=== PATIENT | female | born 1990 | race Caucasian/White ===

== ENCOUNTER 2019-10-24 10:04 | Outpatient (CLI) | payer OTHER, SELFPAY ==
[2019-10-24 10:39] LABS: Basophils % 0.7 %; Eosinophils # 0.1 10^3/uL (0.0-0.8); Eosinophils % 1.1 %; Hematocrit 45.2 % (37.0-47.0); Hemoglobin 15.1 g/dL (11.5-15.3); Lymphocytes # 1.8 10^3/uL (0.8-4.8); Lymphocytes % 39.1 %; Mean Corpuscular HGB Conc 33.4 g/dL (30.0-36.0); Mean Corpuscular Hemoglobin 31.9 pg (28.0-34.0); Mean Corpuscular Volume 95.4 fL (81-99); Mean Platelet Volume 9.9 fL (7.4-10.4); Monocytes # 0.3 10^3/uL (0.2-0.9); Monocytes % 7.2 %; Neutrophils # 2.4 10^3/uL (1.8-7.7); Neutrophils % 51.7 %; Nucleated Red Blood Cells % 0 %; Platelet Count 249 10^3/cmm (130-400); Red Blood Count 4.74 10^6/uL (4.1-5.3); Red Cell Distribution Width 11.9 % (12.1-15.1); White Blood Count 4.6 10^3/uL (4.0-10.0)
[2019-10-24 11:17] LABS: Alanine Aminotransferase 15 U/L (0-33); Albumin Level 4.8 g/dL (3.5-5.2); Alkaline Phosphatase 58 IU/L (35-105); Anion Gap 17.2 (5-19); Aspartate Amino Transferase 21 U/L (0-32); Blood Urea Nitrogen 11 mg/dL (6-20); Calcium 9.4 mg/dL (8.5-10.5); Carbon Dioxide 24 mmol/L (22-29); Chloride 101 mmol/L (98-107); Chol HDL Ratio 3.52 mg/dL (0.0-4.40); Cholesterol 183 mg/dL (0-200); Globulin 3.2 g/dL (1.3-4.6); Glomerular Filtration Rate 75.7 mL/min (90-130); Glucose 89 mg/dL (65-115); HDL Cholesterol 52 mg/dL (60-100); LDL Cholesterol Calculated 121 mg/dL (50-129); LDL HDL Ratio 2.33 RATIO (0.00-3.22); Osmolality Calculated 282 mOsm/kg (285-295); Potassium 4.2 mmol/L (3.5-5.1); Sodium 138 mmol/L (136-145); Thyroid Stimulating Hormone 1.29 uIU/mL (0.27-4.20); Triglycerides 52 mg/dL (0-150)
== END 2019-10-24 10:05 | disposition home or self-care (01) ==
PROVIDERS: Family Provider Family Medicine; PCP Registered Nurse; Visit Provider Registered Nurse
DX: Z00.00 Encounter for general adult medical examination without abnormal findings (principal)
CPT/HCPCS: 80053; 80061; 84443; 85025

== ENCOUNTER → 2019-12-27 11:12 | Outpatient (BNVA) | payer OTHER, SELFPAY | PROVIDERS: Family Provider Family Medicine; PCP Registered Nurse; Visit Provider Nurse Practitioner Family | DX: Z11.59 Encounter for screening for other viral diseases (principal); J06.9 Acute upper respiratory infection, unspecified; Z20.828 Contact with and (suspected) exposure to other viral communicable diseases | CPT/HCPCS: 87635 ==

== ENCOUNTER → 2020-01-22 12:13 | Outpatient (BNVA) | payer OTHER, SELFPAY | PROVIDERS: Family Provider Family Medicine; PCP Registered Nurse; Visit Provider Family Medicine | DX: Z11.59 Encounter for screening for other viral diseases (principal) | CPT/HCPCS: 87635 ==

== ENCOUNTER 2020-05-28 21:01 | Emergency (ER) | payer BC, SELFPAY ==
[2020-05-28 21:44] VITALS: BP 137/86; PULSE 148; RESP 17; TEMP 36.8; O2SAT 98; BMI 24.0
--- NOTE | 2020-05-28 22:00 | ECG_ITS ---
[facility] Test Date: 2020-05-28 Pat Name: Batool Suggs Department: Room: Gender: Female Roofer: : 1990 Requested By: Axel House Order Number: [id number] Brayden MD: Amber Yarbrough M.D. Measurements Intervals [place] Rate: 101 P: 54 LA: 155 QRS: 79 QRSD: 97 T: 49 QT: 328 QTc: 425 Interpretive Statements SINUS TACHYCARDIA ABNORMAL RHYTHM ECG No previous ECG available for comparison Electronically Signed On 05-29-2020 20:24:45 [employer] by Amber Yarbrough M.D. [id number]
--- NOTE | 2020-05-28 22:16 | W.ED.GENADLT ---
HPI - General Adult General: Chief complaint: General Medical Stated complaint: surgery last wk, bleeding from rectum Time Seen by Provider: 05/28/20 22:00 Source: patient Mode of arrival: ambulatory Limitations: no limitations History of Present Illness: HPI narrative: 9-year-old female states she had a hemorrhoidectomy by Dr. Aparicio last week. She states she has not had a bowel movement since then and had 1 today and did pass blood and had blood clots. She states it is bright red nature. She is having some anal pain as well. She took MiraLAX. She denies any lightheadedness. Denies any worsening improving factors. Associated symptoms: Deny chest pain, dyspnea, headache(s), nausea, rash or vomiting Review of Systems Const: Denies: fever(s), chills, body aches or change in appetite Eyes: Denies: blurry vision or eye discomfort ENMT: Denies: throat pain or dental pain Card: Denies: chest pain Resp: Denies: dyspnea GI: Reports: hematochezia; Denies: abdominal pain, nausea, vomiting or diarrhea : Denies: dysuria Musc: Denies: neck pain or back pain Skin/Breast: Denies: rash Neuro: Denies: headache(s) Psych: Denies: depression [place]/Lymph: Denies: easy bruising All/Imm: Denies: urticaria Physical Exam Const: COMMON NORMALS: no acute distress, patient oriented x3 and healthy appearing HENMT: COMMON NORMALS: normocephalic and atraumatic HEAD & SCALP: normocephalic and atraumatic Eye: COMMON NORMALS: Equal, round and reactive pupils present and EOMs intact bilaterally PUPIL: Yes Equal, round and reactive pupils present Neck/C-Spine: COMMON NORMALS: full ROM and supple Chest: COMMONS NORMALS: normal inspection of the chest and normal palpation of entire chest wall Resp: COMMON NORMALS: normal respiratory effort, No retractions, No use of accessory muscles and clear to auscultation bilaterally AUSCULTATION: clear to auscultation bilaterally Cardio: COMMON NORMALS: regular rate, regular rhythm and No murmurs present (Cardio) RATE: regular rate RHYTHM: regular rhythm GI: COMMON NORMALS: Normal to inspection, nondistended, normoactive bowel sounds present, Soft to palpation, non-tender and no masses PALPATION: Yes Soft to palpation : OTHER: Patient does have an anal fissure on rectal exam with bright red blood Extremity: COMMON NORMALS: normal to inspection and full ROM Neuro: COMMON NORMALS: patient oriented x3, moves all extremities and no focal motor deficits Psych: COMMON NORMALS: mental status grossly normal, Normal thought process present and cooperative THOUGHT PROCESS: Normal thought process present Skin: COMMON NORMALS: no rashes or lesions noted and no wounds GENERAL SKIN EXAM: no rashes or lesions noted Course Vital Signs: Vital signs: Vital Signs Temperature 98.2 F 05/28/20 21:44 Pulse Rate 148 H 05/28/20 21:44 Respiratory Rate 17 05/28/20 21:44 Blood Pressure 137/86 05/28/20 21:44 Pulse Oximetry 98 05/28/20 21:44 MDM - General Adult MDM Narrative: Medical decision making narrative: Batool presents with lower GI bleeding from a fissure. Her hemoglobin here is normal. Will prescribe her Proctofoam and she is to continue to take stool softeners. She is to follow-up with Dr. Aparicio and return if worsening. She understands and agrees to the plan. Lab Data: Labs: Lab Results 05/28/20 05/28/20 05/28/20 Range/Units 22:40 22:40 22:40 WBC 4.5 (4.0-10.0) 10^3/ uL RBC 4.17 (4.1-5.3) 10^6/u L Hgb 13.4 (11.5-15.3) g/dL Hct 40.0 (37.0-47.0) % MCV 95.9 (81-99) fL MCH 32.1 (28.0-34.0) pg MCHC 33.5 (30.0-36.0) g/dL RDW 11.9 L (12.1-15.1) % Plt Count 212 (130-400) 10^3/c mm MPV 10.4 (7.4-10.4) fL Neut % (Auto) 62.1 % Lymph % (Auto) 29.4 % [place] % (Auto) 6.8 % Eos % (Auto) 1.1 % Baso % (Auto) 0.4 % Neut # (Auto) 2.81 (1.8-7.7) 10^3/u L Lymph # (Auto) 1.3 (0.8-4.8) 10^3/u L [place] # (Auto) 0.3 (0.2-0.9) 10^3/u L Eos # (Auto) 0.1 (0.0-0.8) 10^3/u L Baso # (Auto) 0.0 (0.0-0.1) 10^3/u L Nucleated RBC % (a uto) 0 % Nucleated RBCs # 0.0 /100WBC PT 13.50 (12.1-14.9) SECO NDS INR 1.00 (0.8-1.2) Sodium 139 (136-145) mmol/L Potassium 3.5 (3.5-5.1) mmol/L Chloride 105 (98-107) mmol/L Carbon Dioxide 25 (22-29) mmol/L Anion Gap 12.5 (5-19) BUN 13 (6-20) mg/dL Creatinine 0.8 (0.5-0.9) mg/dL GFR Calculation 86.0 L (90-130) mL/min Glucose 90 (65-115) mg/dL Calculated Osmolal ity 288 (285-295) mOsm/k g Calcium 9.4 (8.5-10.5) mg/dL Total Bilirubin 0.4 (0.15-1.2) mg/dL AST 36 H (0-32) U/L ALT 35 H (0-33) U/L Alkaline Phosphata se 83 (35-105) IU/L Total Protein 7.2 (6.6-8.7) g/dL Albumin 4.4 (3.5-5.2) g/dL Globulin 2.8 (1.3-4.6) g/dL EKG Data^: EKG 1: Attestation: I personally reviewed and interpreted this EKG as follows: EKG interpretation date: 05/28/20 EKG interpretation time: 22:21 Interpretation: Sinus tachycardia heart rate [address] or T wave normalities QRS 97 QTc 386 Discharge Plan Discharge Patient Disposition: Home Clinical Impression: Acute lower GI bleeding, Anal fissure Condition: Stable Prescriptions: New Proctofoam 1 % foam 1 applic ID TID PRN (Reason: pain) Qty: 15 RF: 0 No Action sertraline [Zoloft] 50 mg tablet 75 mg PO DAILY RF: 0 alprazolam [Xanax] 0.5 mg tablet 0.5 mg PO TID RF: 0 Discharge Orders: Discharge ED (Routine); Ordered 05/28/20 Ordered By: Axel House Referrals: Chapin Aparicio MD [Physician] - 1-3 days Ambar Rubio FNP [Primary Care Provider] - Discharge Diet: Advance as tolerated Discharge Activity: Resume usual activity Patient Instructions: Anal Fissure (ED) Coding Level of Care Code ED [employer] Shipper for Chg Fwd Exam Comprehensive
[2020-05-28 23:09] LABS: Basophils % 0.4 %; Eosinophils # 0.1 10^3/uL (0.0-0.8); Eosinophils % 1.1 %; Hemoglobin 13.4 g/dL (11.5-15.3); Lymphocytes # 1.3 10^3/uL (0.8-4.8); Lymphocytes % 29.4 %; Mean Corpuscular HGB Conc 33.5 g/dL (30.0-36.0); Mean Corpuscular Hemoglobin 32.1 pg (28.0-34.0); Mean Corpuscular Volume 95.9 fL (81-99); Mean Platelet Volume 10.4 fL (7.4-10.4); Monocytes # 0.3 10^3/uL (0.2-0.9); Monocytes % 6.8 %; Neutrophils # 2.81 10^3/uL (1.8-7.7); Neutrophils % 62.1 %; Nucleated Red Blood Cells % 0 %; Platelet Count 212 10^3/cmm (130-400); Red Blood Count 4.17 10^6/uL (4.1-5.3); Red Cell Distribution Width 11.9 % (12.1-15.1); White Blood Count 4.5 10^3/uL (4.0-10.0)
[2020-05-28 23:28] LABS: Alanine Aminotransferase 35 U/L (0-33); Albumin Level 4.4 g/dL (3.5-5.2); Alkaline Phosphatase 83 IU/L (35-105); Anion Gap 12.5 (5-19); Aspartate Amino Transferase 36 U/L (0-32); Blood Urea Nitrogen 13 mg/dL (6-20); Calcium 9.4 mg/dL (8.5-10.5); Carbon Dioxide 25 mmol/L (22-29); Chloride 105 mmol/L (98-107); Globulin 2.8 g/dL (1.3-4.6); Glucose 90 mg/dL (65-115); Osmolality Calculated 288 mOsm/kg (285-295); Potassium 3.5 mmol/L (3.5-5.1); Sodium 139 mmol/L (136-145); Total Bilirubin 0.4 mg/dL (0.15-1.2); Total Protein 7.2 g/dL (6.6-8.7)
[2020-05-28 23:50] VITALS: BP 125/87; PULSE 96; RESP 18; O2SAT 99
--- NOTE | 2020-05-29 09:53 | DCPLANNER ---
dba manager had message to schedule a follow up appointment for patient with Dr. Aparicio. dba manager faxed patients information to the office of Dr. Aparicio, will call for appointment information.
--- NOTE | 2020-06-03 15:41 | DCPLANNER ---
Patient had a follow up appointment with Dr. Aparicio scheduled for 06.03.[address] Aparicio patient did attend appointment.
== END 2020-05-28 23:50 | disposition home or self-care (01) ==
PROVIDERS: Nurse Practitioner Family; Emergency Provider Emergency Medicine; PCP Registered Nurse
DX: K92.2 Gastrointestinal hemorrhage, unspecified (principal); K60.2 Anal fissure, unspecified
CPT/HCPCS: 12345; 80053; 85025; 85610; 93005; 99282; 99283

== ENCOUNTER 2020-08-05 16:14 | Outpatient (CLI) | payer BC, SELFPAY ==
[2020-08-05 16:53] LABS: Basophils % 0.7 %; Eosinophils # 0.1 10^3/uL (0.0-0.8); Eosinophils % 1.7 %; Hematocrit 43.1 % (37.0-47.0); Hemoglobin 14.7 g/dL (11.5-15.3); Lymphocytes # 1.8 10^3/uL (0.8-4.8); Lymphocytes % 45.9 %; Mean Corpuscular HGB Conc 34.1 g/dL (30.0-36.0); Mean Corpuscular Hemoglobin 31.7 pg (28.0-34.0); Mean Corpuscular Volume 93.1 fL (81-99); Monocytes # 0.3 10^3/uL (0.2-0.9); Monocytes % 6.7 %; Nucleated Red Blood Cells % 0 %; Platelet Count 230 10^3/cmm (130-400); Red Blood Count 4.63 10^6/uL (4.1-5.3); Red Cell Distribution Width 11.4 % (12.1-15.1)
[2020-08-05 17:26] LABS: Alanine Aminotransferase 15 U/L (0-33); Albumin Level 4.6 g/dL (3.5-5.2); Alkaline Phosphatase 62 IU/L (35-105); Anion Gap 13.2 (5-19); Aspartate Amino Transferase 22 U/L (0-32); Blood Urea Nitrogen 8 mg/dL (6-20); Calcium 8.8 mg/dL (8.5-10.5); Carbon Dioxide 24 mmol/L (22-29); Chloride 103 mmol/L (98-107); Globulin 2.6 g/dL (1.3-4.6); Glucose 81 mg/dL (65-115); Osmolality Calculated 279 mOsm/kg (285-295); Potassium 4.2 mmol/L (3.5-5.1); Sodium 136 mmol/L (136-145); Total Bilirubin 0.9 mg/dL (0.15-1.2); Total Protein 7.2 g/dL (6.6-8.7)
== END 2020-08-05 16:15 | disposition home or self-care (01) ==
LOC: LAB 16:24
PROVIDERS: PCP Registered Nurse; Visit Provider Registered Nurse
DX: R53.83 Other fatigue (principal)
CPT/HCPCS: 36415; 80053; 84443; 85025

== ENCOUNTER 2021-02-25 11:00 | Outpatient (CLI) | payer BC, SELFPAY ==
--- NOTE | 2021-02-25 11:07 | XR_ITS ---
WS: [id number] Left ankle, 3 views, 02/25/2021 Clinical Data: SPRAIN OF TIBIOFIBULAR LIGAMENT OF L ANKLE Comparison: Left ankle, 08/09/2007. Findings: No fractures or dislocations are seen. The ankle mortise is normal. The talus and calcaneus are unrem arkable. No soft tissue swelling over the medial or lateral malleolus is seen. XR/XR ankle LT min 3V* [id number] Impression: Negative left ankle.
== END 2021-02-25 11:01 | disposition home or self-care (01) ==
LOC: RAD 11:04
PROVIDERS: PCP Registered Nurse; Visit Provider Registered Nurse
DX: S93.432A Sprain of tibiofibular ligament of left ankle, initial encounter (principal); X58.XXXA Exposure to other specified factors, initial encounter
CPT/HCPCS: 73610

== ENCOUNTER 2023-09-28 09:20 | Emergency (ER) | payer BC, SELFPAY ==
[2023-09-28 09:25] VITALS: BP 133/87; PULSE 94; TEMP 36.6; O2SAT 96; BMI 25.3
[2023-09-28] MEDS: sodium chloride 0.9% 1,000 ML 999 ML IV (09:49)
--- NOTE | 2023-09-28 09:58 | ED_ITS ---
HPI - Abdominal Pain 2 General: Chief Complaint: Abdominal Pain Stated Complaint: abd pain right side Time Seen by Provider: 09/28/23 09:44 Source: patient Mode of arrival: ambulatory Limitations: no limitations History of Present Illness: This patient presents to the emergency department because of right flank pain that began this morning. She states she felt a little off last evening but no specific symptoms. She denies any back injury lifting turning twisting turning etc. She states that earlier today she woke up and felt not totally normal. She states she attempted to urinate and only a small amount of urine. She states that the pain reached a crescendo and was quite uncomfortable with sweating and feeling like she was going to throw up but has improved now. Prior history of renal stones and has had lithotripsy in the past. Also had a prior appendectomy. She is on Depo-Provera and has amenorrhea. MD elicited complaint: abdominal pain and flank pain Associated Symptoms: Reports nausea; Denies chills, fever(s) and vomiting Related Data: Patient : No Review of Systems 2 Const: Denies: fever(s) or chills Eyes: Denies: change in vision ENMT: Denies: odynophagia, nasal discharge or nasal congestion Card: Denies: chest pain or palpitations GI: Reports: abdominal pain and nausea; Denies: vomiting : Reports: flank pain and urinary hesitancy Musc: Denies: neck pain, extremity pain or extremity swelling Skin/Breast: Denies: rash or pruritus Neuro: Denies: headache(s), numbness in extremities or weakness in extremities Endo: Denies: polyuria or polydipsia PFSH ED 2 PFSH: Medical History H/O nephrolithotomy with removal of calculi Anxiety Surgical History S/P appendectomy S/P hemorrhoidectomy Family History Grandmother Arrhythmia Family/Other Arrhythmia Myocardial infarction Hypertension Grandfather Myocardial infarction Other Diabetes Social History Smoking and tobacco/nicotine status: former use of tobacco/nicotine Physical Exam 2 Narrative: EXAM NARRATIVE: She appears comfortable at this time makes good eye contact speech is goal- directed. Const: COMMON NORMALS: no acute distress, average body habitus, patient oriented x3, healthy appearing and alert GENERAL APPEARANCE: cooperative and comfortable HENMT: COMMON NORMALS: normocephalic, Normal nasal mucous membranes and turbinates present, moist oral mucous membranes and oropharynx normal HEAD & SCALP: normocephalic NOSE: Normal nasal mucous membranes and turbinates present Eye: COMMON NORMALS: Equal, round and reactive pupils present, EOMs intact bilaterally and conjunctivae normal CONJUNCTIVA: Yes conjunctivae normal P UPIL: Yes Equal, round and reactive pupils present Neck/C-Spine: COMMON NORMALS: full ROM and no lymphadenopathy Chest: COMMONS NORMALS: normal inspection of the chest Resp: COMMON NORMALS: normal respiratory effort, No retractions, No use of accessory muscles and clear to auscultation bilaterally AUSCULTATION: clear to auscultation bilaterally Cardio: COMMON NORMALS: regular rate, regular rhythm, No murmurs present (Cardio) and Peripheral pulses 2+ throughout RATE: regular rate RHYTHM: r egular rhythm PERIPHERAL PULSES: Peripheral pulses 2+ throughout GI: COMMON NORMALS: Normal to inspection, nondistended, normoactive bowel sounds present, Soft to palpation and non-tender PALPATION: Yes Soft to palpation : COMMON NORMALS: Yes no CVA tenderness BLADDER/KIDNEY EXAM: Yes no CVA tenderness Back/Pelvis: COMMON NORMALS: no CVA tenderness, thoracic and lumbar spine normal to inspection, no thoracic nor lumbar tenderness, thoraco-lumbar ROM normal and straight leg raise negative bilaterally Extremity: COMMON NORMALS: normal to inspection, full ROM and capillary refill normal Neuro: COMMON NORMALS: patient oriented x3, moves all extremities and no focal motor deficits SENSORIUM/ORIENTATION: Yes alert Psych: COMMON NORMALS: mental status grossly normal Skin: COMMON NORMALS: no rashes or lesions noted, no wounds and turgor normal GENERAL SKIN EXAM: no rashes or lesions noted and turgor normal Course 2 Reevaluation(s): Reevaluation #1: Shared current findings with the patient. Given her age and previous several CAT scans I recommended to her that we start with a renal ultrasound which she agreed to. She is also developing some return of her colicky symptoms we will go ahead and proceed with ketorolac. Time: 11:20 Reevaluation #2: Patient continues to be comfortable. I asked shared current findings with her and that there is no evidence of hydronephrosis or other secondary signs that she has a obstructing stone at this time. Plan will be to give her a 3-day course of antibiotics with antispasmodics and follow clinical response. We discussed return precautions. She voiced understanding. Time: 12:41 Vital Signs: Vital signs: Vital Signs Temperature 97.8 F 09/28/23 09:25 Pulse Rate 96 09/28/23 11:17 Respiratory Rate 15 09/28/23 11:17 Blood Pressure 116/89 09/28/23 11:17 Pulse Oximetry 96 09/28/23 11:17 Oxygen Delivery Me thod Room Air 09/28/23 11:17 MDM - Abdominal Pain Medical Decision Making Patient with a known history of kidney stones comes to the emergency department today with right flank pain suggestive of possible renal colic. She had no concomitant fevers. She has had a prior appendectomy. Clinical examination revealed no significant findings. Ancillary studies were begun to evaluate for possible kidney infection. Urinalysis did show hematuria with minimal pyuria and bacteria. Because of her history despite her reassuring clinical examination a renal ultrasound was obtained which did not reveal any hydronephrosis or other secondary signs of stone. We discussed empiric treatment for possible passed stone or possible low-grade urinary tract infection. Certainly does not suggest a musculoskeletal etiology or other worrisome condition at this time. He is clinically stable without any evidence of a surgical abdomen. She voiced understanding and has agreed to the plan of care. Symptoms does not continue to be abated or worsen and she will she was advised to return for additional evaluation and possible additional imaging. Lab Data I reviewed the patient's lab results. 09/28/23 09:52 09/28/23 09:52 Labs/Radiology: Radiology Impressions Renal Ultrasound 09/28/23 11:20 IMPRESSION: 1. No renal obstruction or mass. 2. Nonobstructing 5 mm calcification lower pole RIGHT kidney. Laboratory Results WBC 3.68 10^3/uL (3.29-11.43) 09/28/23 09:52 RBC 4.72 10^6/uL (3.85-5.65) 09/28/23 09:52 Hgb 15.20 g/dL (11.27-16.99) 09/28/23 09:52 Hct 44.0 % (36-47) 09/28/23 09:52 MCV 93.2 fl (85-98) 09/28/23 09:52 MCH 32.2 pg (27-33) 09/28/23 09:52 MCHC 34.5 g/dL (30-55) 09/28/23 09:52 RDW 12.2 % (12.1-15.1) 09/28/23 09:52 Plt Count 238 10^3/cmm (157-399) 09/28/23 09:52 MPV 9.9 fL (7.4-10.4) 09/28/23 09:52 Neut % (Auto) 49.7 % 09/28/23 09:52 Lymph % (Auto) 40.5 % 09/28/23 09:52 [place] % (Auto) 7.1 % 09/28/23 09:52 Eos % (Auto) 1.9 % 09/28/23 09:52 Baso % (Auto) 0.8 % 09/28/23 09:52 Neut # (Auto) 1.83 10^3/uL (1.8-7.7) 09/28/23 09:52 Lymph # (Auto) 1.5 10^3/uL (0.8-4.8) 09/28/23 09:52 [place] # (Auto) 0.3 10^3/uL (0.2-0.9) 09/28/23 09:52 Eos # (Auto) 0.1 10^3/uL (0.0-0.8) 09/28/23 09:52 Baso # (Auto) 0.0 10^3/uL (0.0-0.1) 09/28/23 09:52 Nucleated RBC % (auto) 0 % 09/28/23 09:52 Nucleated RBCs # 0.0 /100WBC 09/28/23 09:52 Sodium 140 mmol/L (136-145) 09/28/23 09:52 Potassium 3.7 mmol/L (3.5-5.1) 09/28/23 09:52 Chloride 106 mmol/L (98-107) 09/28/23 09:52 Carbon Dioxide 23 mmol/L (22-29) 09/28/23 09:52 Anion Gap 14.7 (5-19) 09/28/23 09:52 BUN 13 mg/dL (6-20) 09/28/23 09:52 Creatinine 1.0 mg/dL (0.5-0.9) H 09/28/23 09:52 GFR Calculation 65.1 mL/min (90-130) L 09/28/23 09:52 Glucose 77 mg/dL (65-115) 09/28/23 09:52 Calculated Osmolality 289 mOsm/kg (285-295) 09/28/23 09:52 Calcium 9.0 mg/dL (8.5-10.5) 09/28/23 09:52 Total Bilirubin 0.7 mg/dL (0.15-1.2) 09/28/23 09:52 AST 20 U/L (0-32) 09/28/23 09:52 ALT 22 U/L (0-33) 09/28/23 09:52 Alkaline Phosphatase 74 U/L (35-105) 09/28/23 09:52 Total Protein 7.7 g/dL (6.6-8.7) 09/28/23 09:52 Albumin 4.3 g/dL (3.5-5.2) 09/28/23 09:52 Globulin 3.4 g/dL (1.3-4.6) 09/28/23 09:52 HCG, Qual Negative (Negative) 09/28/23 10:16 Urine Color Yellow (Yellow) 09/28/23 10:16 Urine Appearance Clear (CLEAR) 09/28/23 10:16 Urine pH 5 (5-7) 09/28/23 10:16 Ur Specific [place] 1.025 (1.005-1.030) 09/28/23 10:16 Urine Protein Neg (Negative) 09/28/23 10:16 Urine Glucose (UA) Norm (Normal) 09/28/23 10:16 Urine Ketones Negative (Negative) 09/28/23 10:16 Urine Blood 3+ (Negative) H 09/28/23 10:16 Urine Nitrate Negative (Negative) 09/28/23 10:16 Urine Bilirubin Neg (Negative) 09/28/23 10:16 Urine Urobilinogen Norm mg/dL (Negative) 09/28/23 10:16 Ur Leukocyte Esterase Trace (Negative) H 09/28/23 10:16 Urine RBC 15-25 /hpf (0-2) H 09/28/23 10:16 Urine WBC 0-4 /hpf (0-5) H 09/28/23 10:16 Ur Squamous Epith Cells 0-4 /hpf (0-5) H 09/28/23 10:16 Amorphous Sediment Not Reportable 09/28/23 10:16 Urine Bacteria None /hpf (NONE) 09/28/23 10:16 Urine Mucus 2+ /hpf 09/28/23 10:16 All radiology interpretation(s) finalized by discharge Discharge Plan Discharge Patient Disposition: Home Clinical Impression: Renal colic on right side Condition: Stable Prescriptions: New hyoscyamine sulfate [Oscimin] 0.125 mg tablet 0.125 mg PO Q6H PRN (Reason: renal colic) Qty: 20 0RF nitrofurantoin monohyd/m-cryst [Macrobid] 100 mg capsule 100 mg PO BID 3 Days Qty: 6 0RF Rx Instructions: must administer with a meal/food No Action alprazolam [Xanax] 0.5 mg tablet 0.5 mg PO TID PRN (Reason: Anxiety) sertraline [Zoloft] 50 mg tablet 50 mg PO QPM Depo-Estradiol 5 mg/mL oil 5 mg IM .[id number] trazodone 50 mg tablet 50 mg PO BEDTIME buspirone 15 mg tablet 15 mg PO TID PRN (Reason: Anxiety) Discharge Orders: Discharge ED (Routine); Ordered 09/28/23 Ordered By: Tyler Powers Referrals: Ambar Rubio FNP [Primary Care Provider] - Discharge Diet: Usual diet Discharge Activity: Increase activity as tolerated Patient Instructions: Abdominal Pain (ED), Opioid Safety, Pain Management Activity Restrictions/Additional Instructions: At your emergency department visit today there was no evidence that he needed additional evaluation and/or admission to the hospital. Do think that you had right flank pain from a possible passed kidney stone and/or a low-grade kidney infection. We have provided medication to help treat your symptoms and if you continue to do well and did not develop any additional symptoms no additional evaluation is necessary however if your symptoms do not continue to improve or worsen or new symptoms develop you should return to the emergency department for reevaluation. 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
[2023-09-28 10:01] LABS: Basophils % 0.8 %; Eosinophils # 0.1 10^3/uL (0.0-0.8); Eosinophils % 1.9 %; Lymphocytes # 1.5 10^3/uL (0.8-4.8); Lymphocytes % 40.5 %; Mean Corpuscular HGB Conc 34.5 g/dL (30-55); Mean Corpuscular Hemoglobin 32.2 pg (27-33); Mean Corpuscular Volume 93.2 fl (85-98); Mean Platelet Volume 9.9 fL (7.4-10.4); Monocytes # 0.3 10^3/uL (0.2-0.9); Monocytes % 7.1 %; Neutrophils # 1.83 10^3/uL (1.8-7.7); Neutrophils % 49.7 %; Nucleated Red Blood Cells % 0 %; Platelet Count 238 10^3/cmm (157-399); Red Blood Count 4.72 10^6/uL (3.85-5.65); Red Cell Distribution Width 12.2 % (12.1-15.1); White Blood Count 3.68 10^3/uL (3.29-11.43)
[2023-09-28 10:17] LABS: Alanine Aminotransferase 22 U/L (0-33); Albumin Level 4.3 g/dL (3.5-5.2); Alkaline Phosphatase 74 U/L (35-105); Anion Gap 14.7 (5-19); Aspartate Amino Transferase 20 U/L (0-32); Blood Urea Nitrogen 13 mg/dL (6-20); Carbon Dioxide 23 mmol/L (22-29); Chloride 106 mmol/L (98-107); Globulin 3.4 g/dL (1.3-4.6); Glomerular Filtration Rate 65.1 mL/min (90-130); Glucose 77 mg/dL (65-115); Osmolality Calculated 289 mOsm/kg (285-295); Potassium 3.7 mmol/L (3.5-5.1); Sodium 140 mmol/L (136-145); Total Bilirubin 0.7 mg/dL (0.15-1.2); Total Protein 7.7 g/dL (6.6-8.7)
[2023-09-28 10:18] LABS: Creatinine Clr Calc Pharmacy 74.5216
[2023-09-28 10:40] LABS: Add Urine Microscopic? YES; Bilirubin Urine Neg (Negative); Blood Urine 3+ (Negative); Glucose Urine UA Norm (Normal); Ketones Urine Negative (Negative); Leukocyte Esterase Urine Trace (Negative); Nitrate Urine Negative (Negative); Protein Urine Neg (Negative); Specific Gravity, Urine 1.025 (1.005-1.030); Urine Appearance Clear (CLEAR); Urine Color Yellow (Yellow); Urobilinogen Urine Norm (Negative); pH Urine 5 (5-7)
[2023-09-28 10:51] LABS: RBC Urine 15-25 /hpf (0-2); Squamous Epithelial Cell Urine 0-4 /hpf (0-5); WBC Urine 0-4 /hpf (0-5)
[2023-09-28 10:52] LABS: Add Urine Culture? No; Mucus Urine 2+ /hpf
[2023-09-28 11:06] LABS: HCG Qualitative Urine. Negative (Negative)
[2023-09-28 11:17] VITALS: BP 116/89; PULSE 96; RESP 15; O2SAT 96
--- NOTE | 2023-09-28 11:20 | US_ITS ---
WS: [id number] RENAL ULTRASOUND HISTORY: right renal colic and history of stones COMPARISON: None available. TECHNIQUE: 2-D and color Doppler imaging of the kidney submitted. Right kidney: 10.3 cm x 4.0 cm x 4.0 cm. Cortex: 1.3 cm Normal echogenicity with no hydronephrosis or mass. Nonobstructing 5 mm calcification lower pole RIGH T kidney. Left kidney: 10.3 cm x 3.2 cm x 4.1 cm. Cortex: 1.2 cm Normal echogenicity with no hydronephrosis or mass. Aorta: Normal. Urinary Bladder: Normal distention. US/US renal BI* [id number] IMPRESSION: 1. No renal obstruction or mass. 2. Nonobstructing 5 mm calcification lower pole RIGHT kidney.
[2023-09-28] MEDS: ketorolac 30 mg/mL INJ 15 MG IVP (11:25)
== END 2023-09-28 13:02 | disposition home or self-care (01) ==
PROVIDERS: Emergency Provider Emergency Medicine; PCP Registered Nurse
DX: N20.0 Calculus of kidney (principal); Z87.442 Personal history of urinary calculi; Z87.891 Personal history of nicotine dependence
CPT/HCPCS: 76770; 80053; 81001; 81025; 85025; 96361; 96374; 99285; J1885; J7030

== ENCOUNTER 2025-01-28 16:05 | Outpatient (CLI) | payer SELFPAY ==
[2025-01-28 17:58] LABS: Hematocrit 41.3 % (36-47); Hemoglobin 14.00 g/dL (11.27-16.99); Mean Corpuscular HGB Conc 33.9 g/dL (30-55); Mean Corpuscular Hemoglobin 31.3 pg (27-33); Mean Corpuscular Volume 92.4 fl (85-98); Nucleated Red Blood Cells % 0 %; Platelet Count 227 10^3/cmm (157-399); Red Blood Count 4.47 10^6/uL (3.85-5.65); White Blood Count 5.31 10^3/uL (3.29-11.43)
[2025-01-28 18:31] LABS: Estmated Average Glucose 97; Hemoglobin A1C 5.0 % (4.0-6.0)
[2025-01-28 18:39] LABS: Alanine Aminotransferase 13 U/L (0-33); Albumin Level 4.4 g/dL (3.5-5.2); Alkaline Phosphatase 68 U/L (35-105); Anion Gap 16.0 (5-19); Aspartate Amino Transferase 18 U/L (0-32); Blood Urea Nitrogen 15 mg/dL (6-20); Calcium 8.9 mg/dL (8.5-10.5); Carbon Dioxide 24 mmol/L (22-29); Chloride 102 mmol/L (98-107); Cholesterol 218 mg/dL (0-200); Globulin 3.0 g/dL (1.3-4.6); Glucose 76 mg/dL (65-115); HDL Cholesterol 67 mg/dL (60-100); Lipase 30 U/L (13-60); Osmolality Calculated 286 mOsm/kg (285-295); Potassium 4.0 mmol/L (3.5-5.1); Sodium 138 mmol/L (136-145); Thyroid Stimulating Hormone 2.40 uIU/mL (0.27-4.20); Total Protein 7.4 g/dL (6.6-8.7); Triglycerides 75 mg/dL (0-150)
== END 2025-01-28 16:06 | disposition home or self-care (01) ==
PROVIDERS: PCP Nurse Practitioner Family; Visit Provider Nurse Practitioner Family
DX: R10.10 Upper abdominal pain, unspecified (principal)
CPT/HCPCS: 36415; 80053; 80061; 83036; 83690; 84443; 85025